=== PATIENT | female | born 1980 | race Caucasian/White ===

== ENCOUNTER 2016-03-18 14:53 | Emergency (ER) | payer BC ==
[~2016-03-18] VITALS: Ht 160 cm; Wt 53.6 kg
[2016-03-18 14:54] VITALS: TEMP 97.6
[2016-03-18] MEDS ORDERED: ULTRAM 50MG TAB50 MG PO (15:23)
[2016-03-18 15:57] LABS: BASO # 0.1 (0.0-0.2); BASO % 1.1 % (0.0-2.0); EOS # 0.1 (0.0-0.7); EOS % 0.8 % (0-4.0); GRAN # 3.9 (1.4-6.5); GRAN % 58.1 % (42.2-75.2); HEMATOCRIT 42.7 % (37.0-47.0); LYMPH # 2.4 (1.2-3.4); MEAN CELL VOLUME 88 fl (80.0-100.0); MEAN CORPUSCULAR HEMOGLOBIN 29 pg (27.0-31.0); MEAN CORPUSCULAR HGB CONC 33 g/dl (33.0-37.0); MONO # 0.3 (0.1-0.6); MONO % 3.8 % (1.7-9.3); PLATELET COUNT 282 K/mm3 (130-400); RED BLOOD COUNT 4.83 M/mm3 (4.10-5.30); REDCELL DISTRIBUTION WIDTH-CV 12.2 % (11.5-14.5); WHITE BLOOD COUNT 6.6 K/mm3 (4.8-10.8)
[2016-03-18 16:09] LABS: ALANINE AMINOTRANSFERASE 28 U/L (9-52); ALKALINE PHOSPHATASE 78 U/L (50-136); ANION GAP 15 mmol/L (7-16); BILIRUBIN,TOTAL 0.7 mg/dL (0.0-1.0); BLOOD UREA NITROGEN 16 mg/dL (7-17); CALCIUM 10.8 mg/dL (8.4-10.2); CARBON DIOXIDE 26 mmol/L (22-30); CHLORIDE 100 mmol/L (98-107); GLUCOSE 97 mg/dL (74-106); LIPASE 70 U/L (23-300); POTASSIUM 4.1 mmol/L (3.4-5.0); SODIUM 141 mmol/L (137-145); TOTAL PROTEIN 8.9 gm/dL (6.4-8.2)
[2016-03-18 16:18] LABS: B-TYPE NATRIURETIC PEPTIDE 24 pg/mL (0-125)
[2016-03-18 16:39] LABS: TROPONIN-I < 0.012 ng/mL (0.000-0.034)
[2016-03-18 17:28] VITALS: BP 140/95; PULSE 73
== END 2016-03-18 17:29 | disposition home or self-care (01) ==
LOC: COL.ER 14:53
PROVIDERS: Emergency Medicine
DX: R07.9 Chest pain, unspecified (principal); R06.00 Dyspnea, unspecified; Z87.891 Personal history of nicotine dependence